=== PATIENT | male | born 1985 | race American Indian/Alaskan Native ===

== ENCOUNTER 2017-10-08 13:52 | Emergency (ER) | payer BC ==
[2017-10-08 14:09] VITALS: BP 154/99
[2017-10-08 14:56] LABS: Bacteria,Urine 1+ /HPF (Negative); Mucus,Urine 1+ /HPF
[2017-10-08 14:57] LABS: Bilirubin,Urine NEG (Negative); Blood,Urine MOD (Negative); Color,Urine Yellow (Yellow); Protein,Urine <15 mg/dL mg/dL (Negative); Urobilinogen,Urine < 2.0 mg/dL (<2.0)
[2017-10-08 15:02] LABS: Basophils % (Auto) 0.2 % (0.0-1.8); Eosinophils # (Auto) 0.1 K/mm3 (0.0-0.4); Eosinophils % (Auto) 1.4 % (0.0-4.3); Hematocrit 43.7 % (35.5-45.6); Hemoglobin 14.7 gm/dl (11.8-15.2); Lymphocytes # (Auto) 1.6 K/mm3 (1.2-5.4); Lymphocytes % (Auto) 22.7 % (13.4-35.0); Mean Corpuscular HGB Conc 34 % (32-34); Mean Corpuscular Hemoglobin 30 pg (28-32); Mean Corpuscular Volume 89 fl (84-94); Monocytes # (Auto) 0.4 K/mm3 (0.0-0.8); Platelet Count 223 K/mm3 (140-440); Red Cell Distribution Width 13.4 % (13.2-15.2)
[2017-10-08 15:20] LABS: Alanine Aminotransferase 33 units/L (7-56); BUN/Creatinine Ratio 11; Blood Urea Nitrogen 11 mg/dL (9-20); Calcium 8.8 mg/dL (8.4-10.2); Hemolysis Index 3; Lipase 21 units/L (13-60)
[2017-10-08] MEDS ORDERED: TYLENOL PO ONE (16:02)
[2017-10-08] MEDS ORDERED: TYLENOL ONE (16:03)
[2017-10-08] MEDS ORDERED: TORADOL IM ONE (19:04)
--- NOTE | 2017-10-08 19:04 | Emergency Department Report ---
Blank Doc - Documentation Documentation: Patient is a 32-year-old -[place] male who started having right flank pain this morning. Patient states it initially 8 out of 10 in severity. Subsided slightly stasis of 5 out of 10 currently. Patient states he tried to make himself vomit to make the pain go away but it didn't help. Patient does state there is some radiation to the suprapubic region in the groin. Patient does have hematuria on initial evaluation of his urine and patient will be sent to CT to rule out obstructing stone. Ut
--- NOTE | 2017-10-08 20:20 | Cat Scan Report ---
FINAL REPORT EXAM: CT ABDOMEN PELVIS WO CON HISTORY: right flank pain TECHNIQUE: Helical CT scan through the abdomen and pelvis without contrast. Images are reconstructed in the sagittal and coronal planes. PRIORS: None. FINDINGS: Solid organ and bowel evaluation is limited without intravenous contrast. Bowel evaluation is limited without oral contrast. The lung bases are clear. The liver pancreas, spleen and adrenal glands appear normal. There are small stones in a dependent location of the gallbladder. There is no gallbladder wall thickening or pericholecystic fluid. There is mild right pelviectasis and ureterectasis without evidence of urolithiasis. Otherwise, the kidneys appear grossly normal. The pelvic organs appear grossly normal. The stomach appears grossly within normal limits. There are no abnormally dilated loops of bowel or acute inflammatory changes. A normal-appearing appendix is identified. Incidental note is made of 3 mildly enlarged perirectal lymph nodes with the largest measuring 1.1 x 0.9 cm. The rectal wall is not well evaluated. The abdominal aorta has a normal diameter. The bones and subcutaneous soft tissues are unremarkable for age. IMPRESSION: 1. Mild right pelviectasis and ureterectasis without evidence of urolithiasis. This may be secondary to a recently passed stone or pyelonephritis/ureteritis. 2. Enlarged perirectal lymph nodes are nonspecific but may be associated with rectal pathology such as inflammation (proctitis) or neoplasm. Additional clinical workup is recommended. 3. Cholelithiasis without CT evidence of acute cholecystitis
--- NOTE | 2017-10-08 20:45 | Emergency Department Report ---
ED Abdominal Pain HPI - General Chief Complaint: Abdominal Pain Stated Complaint: RIGHT SIDE FLANK PLAIN Time Seen by Provider: 10/08/17 18:50 Source: patient Mode of arrival: Ambulatory Limitations: No Limitations - History of Present Illness Initial Comments: This is a 32-year-old male nontoxic, well nourished in appearance, no acute signs of distress presents to the ED with c/o of right flank pain that started this morning. Patient describes pain as sharp with level of 8/10. Patient denies any trauma. Patient stated that currently his pain symptoms has subsided in the ED. Patient also stated that he has hematuria. Patient denies any abdominal pain, chest pain, shortness of breath, fever, chills, nausea, vomiting , headache, stiff neck. Patient denies any other urinary symptoms. Patient denies any allergies or significant past medical history. MD Complaint: flank pain, other (hematurti) -: days(s) (1) Location: R flank Radiation: none Severity: mild Severity scale (0 -10): 5 Quality: sharp Consistency: now resolved Improves With: nothing Worsens With: nothing Associated Symptoms: hematuria. denies: nausea, vomiting, diarrhea, fever, chills, constipation, dysuria, hematemesis, hematochezia, melena, anorexia, syncope - Related Data Previous Rx's Medication Instructions Recorded Last Taken Type traMADol [Ultram] 50 mg PO Q6HR PRN #15 tablet 10/08/17 Unknown Rx Allergies Allergy/AdvReac Type Severity Reaction Status Date / Time No Known Allergies Allergy Unverified 10/08/17 14:12 ED Review of Systems ROS: Stated complaint: RIGHT SIDE FLANK PLAIN Other details as noted in HPI Constitutional: denies: chills, fever Eyes: denies: eye pain, eye discharge, vision change ENT: denies: ear pain, throat pain Respiratory: denies: cough, shortness of breath, wheezing Cardiovascular: denies: chest pain, palpitations Endocrine: no symptoms reported Gastrointestinal: denies: abdominal pain, nausea, diarrhea Genitourinary: hematuria. denies: urgency, dysuria Musculoskeletal: back pain. denies: joint swelling, arthralgia Skin: denies: rash, lesions Neurological: denies: headache, weakness, paresthesias Psychiatric: denies: anxiety, depression Hematological/Lymphatic: denies: easy bleeding, easy bruising ED Past Medical Hx - Past Medical History Previous Medical History?: No - Surgical History Past Surgical History?: No - Social History Smoking Status: Never Smoker Substance Use Type: Alcohol - Medications Home Medications: Home Medications Medication Instructions Recorded Confirmed Last Taken Type traMADol [Ultram] 50 mg PO Q6HR PRN #15 tablet 10/08/17 Unknown Rx ED Physical Exam - General Limitations: No Limitations General appearance: alert, in no apparent distress - Head Head exam: Present: atraumatic, normocephalic - Eye Eye exam: Present: normal appearance Pupils: Present: normal accommodation - ENT ENT exam: Present: normal exam, mucous membranes moist - Neck Neck exam: Present: normal inspection, full ROM. Absent: tenderness, meningismus - Respiratory Respiratory exam: Present: normal lung sounds bilaterally. Absent: respiratory distress, wheezes, rales, rhonchi, stridor, chest wall tenderness, accessory muscle use, decreased breath sounds, prolonged expiratory - Cardiovascular Cardiovascular Exam: Present: regular rate, normal rhythm, normal heart sounds. Absent: bradycardia, tachycardia, irregular rhythm, systolic murmur, diastolic murmur, rubs, gallop - GI/Abdominal GI/Abdominal exam: Present: soft, normal bowel sounds. Absent: distended, tenderness, guarding, rebound, rigid, diminished bowel sounds - Expanded GI/Abdominal Exam Expanded GI/Abdominal exam: Absent: psoas sign, obturator sign, heel tap sign, Hewitt's sign, Rovsing's sign, tenderness at Mcburney's Point, ascites - Rectal Rectal exam: Present: deferred - Extremities Exam Extremities exam: Present: normal inspection, full ROM, normal capillary refill - Back Exam Back exam: Present: normal inspection, full ROM, CVA tenderness (R). Absent: tenderness, CVA tenderness (L), muscle spasm, paraspinal tenderness, vertebral tenderness, rash noted - Expanded Back Exam Expanded Back exam: Negative Straight Leg Raising: Left, Right - Neurological Exam Neurological exam: Present: alert, oriented X3, normal gait - Psychiatric Psychiatric exam: Present: normal affect, normal mood - Skin Skin exam: Present: warm, dry, intact, normal color. Absent: rash ED Course Vital Signs 10/08/17 14:03 Temperature 97.7 F Pulse Rate 73 Respiratory 20 Rate Blood Pressure 154/99 O2 Sat by Pulse 98 Oximetry - Reevaluation(s) Reevaluation #1: 10/08/17 20:49 Patient is speaking in full sentences with no signs of distress noted. - Consultations Consultation #1: 10/08/17 20:49 Patient has been consulted with Dr. Galarza about patient history, physical exam , and lab/CT and examined and screened patient and agrees to ED plan of care and discharge plan of care. ED Medical Decision Making - Lab Data Result diagrams: 10/08/17 14:24 10/08/17 14:24 - Medical Decision Making This is a 32-year-old male that presents with mild passed kidney stone. Patient is stable and was examied by me and Dr. Galarza. Has been obtained CT of abdomen has been obtained and dictated by the radiologist. Labs within normal limits. Patient was notified of the enlarged perirectal lymph nodes as he stated that this is chronic issue and had biopsies in 2014 with normal and benign. There is also signs of cholelithiasis without evidence of acute cholecystitis. Patient currently stated that symptoms of flank pain has subsided. Patient discharged with Ultram. Patient was instructed referred to Follow-up with a primary care/research engineer doctor in 3-5 days or if symptoms worsen and continue return to emergency room as soon as possible. At time of discharge, the patient does not seem toxic or ill in appearance. No acute signs of distress noted. Patient agrees to discharge treatment plan of care. No further questions noted by the patient. Critical care attestation.: If time is entered above; I have spent that time in minutes in the direct care of this critically ill patient, excluding procedure time. ED Disposition Clinical Impression: Renal stone Cholelithiasis Qualifiers: Cholelithiasis location: gallbladder Cholecystitis presence: without cholecystitis Biliary obstruction: without biliary obstruction Qualified Code(s) : K80.20 - Calculus of gallbladder without cholecystitis without obstruction Disposition: -01 TO HOME OR SELFCARE Is pt being admited?: No Does the pt Need Aspirin: No Condition: Stable Instructions: Tramadol (By mouth), Kidney Stones (ED) Additional Instructions: Follow-up with a primary care/research engineer doctor in 3-5 days or if symptoms worsen and continue return to emergency room as soon as possible. Prescriptions: traMADol [Ultram] 50 mg PO Q6HR PRN #15 tablet PRN Reason: Pain Referrals: PRIMARY CARE, [Primary Care Provider] - 3-5 Days LEONARDO ACOSTA MD [Staff Physician] - 3-5 Days [facility] [Provider Group] - 3-5 Days [facility] [Outside] - 3-5 Days [facility] [Outside] - 3-5 Days Forms: Work/School Release Form(ED)
== END 2017-10-08 21:00 | disposition home or self-care (01) ==
LOC: ED 13:52
DX: K80.20 Calculus of gallbladder without cholecystitis without obstruction (principal)
CPT/HCPCS: 36415; 74176; 80053; 81001; 83690; 85025; 96372; 99284; J1885